=== PATIENT | male | born 2000 | race Caucasian/White ===

== ENCOUNTER 2020-02-04 03:09 | Emergency (ER) | payer SELFPAY ==
--- NOTE | ~2020-02-04 | XR_ITS ---
EXAMINATION: XR chest 2V DATE: 02/04/2020 03:45 INDICATION: Palpitations. TECHNIQUE: Frontal and lateral views of the chest were obtained. COMPARISON: None. FINDINGS: The chest demonstrates clear lungs without pneumonia, pleural effusion, or pneumothorax. Th e heart size is normal. IMPRESSION: 1. No acute cardiopulmonary disease. Reviewed, dictated and finalized at location A.
[2020-02-04 03:10] VITALS: BP 138/83; PULSE 81; RESP 18; TEMP 36.6; O2SAT 98
--- NOTE | 2020-02-04 03:18 | ECG_ITS ---
Measurements Intervals [place] Rate: 54 P: 27 DE: 131 QRS: 81 QRSD: 86 T: 52 QT: 392 QTc: 374 Interpretive Statements SINUS BRADYCARDIA WITH SINUS ARRHYTHMIA ST ELEVATION IN ANTEROLAT/INF LEADS- PROBABLY EARLY REPOLARIZATION BASELINE ARTIFACT- I, III, AVR, AVL, AVF BORDERLINE ECG Electronically Signed On 02-04-2020 8:05:44 CDT by Quincy Omalley D.O.
--- NOTE | 2020-02-04 03:28 | ED.NAVMDI ---
HPI - Nausea/Vomiting/Diarrhea General Chief complaint: Nausea/Vomiting/Diarrhea Stated complaint: vomit x 1 Source: RN notes reviewed History of Present Illness HPI Narrative: Patient presents emergency department from home via EMS for nausea vomiting. Patient states he was laying in his bed approximately 1 hour ago when he began to feel nauseous patient states he then felt like his heart rate began to race and he vomited x1. Patient states that following this he just did not feel well and called EMS. Patient currently states he is feeling improved at this time. He states he felt fine all day and had no symptoms prior to an episode while he was laying in bed. He denies any fevers or chills chest pain diarrhea or any other symptoms patient states he was concerned with the feeling of his heart racing at the time Review of Systems Review of Systems: Narrative: Gen.: Denies fevers or chills Eyes: Denies eye pain or visual change ENT: Denies congestion Respiratory: Denies shortness of breath or cough CV: Denies chest pain reports palpitations GI: Reports upper abdominal pain nausea and vomiting, denies diarrhea Musculoskeletal: Denies back pain or muscle pain Neuro: Denies numbness, tingling, weakness or focal weakness Skin: Denies rash Except as documented, all other systems reviewed and negative [facility] Past Medical History Medical History (Updated 02/04/20 @ 05:01 by Maxim Silver DO) Patient denies significant medical history Social History Social History (Updated 02/04/20 @ 03:29 by Maxim Silver DO) Tobacco type: e-cigarettes Gender identity (if verbalized by the patient): Male Exam Narrative: Exam Narrative: APPEARANCE: No acute distress, nontoxic, resting in bed EYES: EOMI HEENT: Normocephalic, atraumatic, OMM RESPIRATORY: No respiratory distress Clear to auscultation bilaterally with no rhonchi wheezing or rales. CARDIOVASCULAR: Regular rate and rhythm without murmurs rubs or gallops. ABDOMINAL: Soft, nontender, nondistended, no rebound or guarding MUSCULOSKELETAl: Moves all extremities. No clubbing, cyanosis or edema. NEURO: Awake and alert. Following commands, speech normal, no focal deficits SKIN:: Warm, dry. No rashes lesions or abrasions PSYCHIATRIC: Normal affect/mood, Course Course Emergency Course: Patient remained asymptomatic throughout stay in ED Discussed with patient results of workup and diagnosis. Discussed need for follow-up with primary care, proper use of medication, and reasons to return to the emergency department. Patient understands and agrees to current treatment plan Vital Signs Vital signs: Vital Signs Temperature 97.9 F 02/04/20 03:10 Pulse Rate 81 02/04/20 03:10 Respiratory Rate 18 02/04/20 03:10 Blood Pressure 138/83 02/04/20 03:10 Pulse Oximetry 98 02/04/20 03:10 Temperature 97.9 F 02/04/20 03:10 Pulse Rate 81 02/04/20 03:10 Respiratory Rate 18 02/04/20 03:10 Blood Pressure 138/83 02/04/20 03:10 Pulse Oximetry 98 02/04/20 03:10 MDM - Nausea/Vomiting/Diarrhea Lab Data Result diagrams: 02/04/20 03:25 02/04/20 03:25 Labs: Lab Results 02/04/20 02/04/20 02/04/20 Range/Units 03:25 03:25 04:24 WBC 5.7 (4.5-10.0) K/mm3 RBC 4.80 (4.6-6.20) M/mm3 Hgb 14.3 (14.0-18.0) g/dL Hct 41.5 L (42.0-52.0) % MCV 86.5 (80-100) fl MCH 29.8 (26-34) pg MCHC 34.5 (32-36) g/dl RDW 11.8 (11.5-14.5) % Plt Count 203 (150-375) k/mm3 MPV 9.8 (7.4-10.4) fl Immature Gran % (Auto) 0.2 (0-0.5) % Neut % (Auto) 65.8 (45.5-73.1) % Lymph % (Auto) 20.7 (18.3-44.2) % [place] % (Auto) 8.7 H (2.6-8.5) % Eos % (Auto) 3.5 (0-4.4) % Baso % (Auto) 1.1 (0.2-1.2) % Lymph # (Auto) 1.17 (0.9-3.2) K/mm3 [place] # (Auto) 0.5 (0.1-0.6) K/mm3 Eos # (Auto) 0.2 (0-0.3) K/mm3 Baso # (Auto) 0.1 (0.0-0.1) K/mm3 Abs Immat Gran (auto) 0.01 (0.00-0.031)
[2020-02-04 03:32] LABS: Basophils Absolute Auto 0.1 K/mm3 (0.0-0.1); Basophils Percent Auto 1.1 % (0.2-1.2); Eosinophils Absolute Auto 0.2 K/mm3 (0-0.3); Eosinophils Percent Auto 3.5 % (0-4.4); Hematocrit 41.5 % (42.0-52.0); Hemoglobin 14.3 g/dL (14.0-18.0); Immature Granulocyte Absolute 0.01 K/mm3 (0.00-0.031); Immature Granulocyte Percent A 0.2 % (0-0.5); Lymphocytes Absolute Auto 1.17 K/mm3 (0.9-3.2); Lymphocytes Percent Auto 20.7 % (18.3-44.2); Mean Corpuscular HGB Conc 34.5 g/dl (32-36); Mean Corpuscular Hemoglobin 29.8 pg (26-34); Mean Corpuscular Volume 86.5 fl (80-100); Mean Platelet Volume 9.8 fl (7.4-10.4); Monocytes Absolute Auto 0.5 K/mm3 (0.1-0.6); Monocytes Percent Auto 8.7 % (2.6-8.5); Neutrophils Absolute Auto 3.7 K/mm3 (1.3-6.7); Neutrophils Percent Auto 65.8 % (45.5-73.1); Platelet Count Result 203 k/mm3 (150-375); Red Cell Distribution Width 11.8 % (11.5-14.5); White Blood Count 5.7 K/mm3 (4.5-10.0)
[2020-02-04] MEDS: LACTATED RINGERS 1,000 ML 999 ML IV CONT (03:36)
[2020-02-04] MEDS: ASPIRIN 81 MG CHEWABLE TABLET 324 MG PO (03:37)
[2020-02-04 03:53] LABS: Alanine Aminotransferase 9 U/L (4-50); Albumin Level 4.4 g/dL (3.5-5.1); Alkaline Phosphatase 86 U/L (38-126); Aspartate Amino Transferase 21 U/L (17-59); Bilirubin,Total 0.9 mg/dL (0.2-1.3); Blood Urea Nitrogen 11 mg/dL (9-20); Calcium 8.8 mg/dL (8.4-10.2); Carbon Dioxide 25 mmol/L (22-30); Chloride 101 mmol/L (98-107); Estimated Glomerular Filt Rate > 60; Glucose 117 mg/dL (75-110); Lipase 41 U/L (23-300); Potassium 3.5 mmol/L (3.4-5.0); Sodium 136 mmol/L (137-145)
[2020-02-04 04:05] LABS: Troponin I < 0.012 ng/mL (0.000-0.034)
[2020-02-04 04:36] LABS: Add Urine Microscopic? NO; Appearance Urine Clear (Clear); Bilirubin Urine Negative (Negative); Blood Urine Negative (Negative); Color Urine Colorless (Yellow); Glucose Urine UA Negative (Negative); Ketones Urine Negative (Negative); Leukocyte Esterase Ur Negative LEU/UL (Negative); Nitrate Urine Negative (Negative); Protein Urine Negative (Negative); Specific Grav Ur 1.005 (1.001-1.035); Urobilinogen Urine Negative mg/dL (<2.0)
[2020-02-04 05:08] VITALS: BP 122/77; PULSE 77; RESP 18; O2SAT 98
== END 2020-02-04 05:09 | disposition home or self-care (01) ==
PROVIDERS: Emergency Provider Emergency Medicine
DX: R11.2 Nausea with vomiting, unspecified (principal); R00.2 Palpitations; F17.290 Nicotine dependence, other tobacco product, uncomplicated; R00.1 Bradycardia, unspecified; R94.31 Abnormal electrocardiogram [ECG] [EKG]
CPT/HCPCS: 36415; 71046; 80053; 81003; 83690; 84484; 85025; 93005; 96360; 99284; A9270; J7120